=== PATIENT | female | born 1990 | race Caucasian/White ===

== ENCOUNTER 2017-01-21 12:43 | Emergency (ER) | payer BC, OTHER ==
[~2017-01-21] VITALS: Ht 154.9 cm; Wt 59.2 kg
[~2017-01-21 12:43] MED LIST: HYDR20TA22 PO; LEVO25TA2 PO; PRAS1TAB3 PO
[2017-01-21] MEDS ORDERED: SODIUM CHLORIDE 0.9% 1,000ML IVBOLUS ONE (13:30)
[2017-01-21] MEDS ORDERED: ONDANSETRON 2MG/ML, 2ML ONE (13:43)
[2017-01-21] MEDS ORDERED: HYDROCORTISONE 100 MG INJ. IVPush ONE (14:00)
[2017-01-21] MEDS ORDERED: ONDANSETRON 2MG/ML, 2ML IVPush ONE (14:00)
[2017-01-21 14:28] LABS: ASPARTATE AMINO TRANSFERASE 12 U/L (15-37); BLOOD UREA NITROGEN 10 mg/dL (7-18)
[2017-01-21] MEDS ORDERED: IBUPROFEN 200 MG TABLET ONE (15:47)
[2017-01-21] MEDS ORDERED: IBUPROFEN 200 MG TABLET PO ONE (16:00)
[2017-01-21 17:00] VITALS: BP 94/62
== END 2017-01-21 17:14 | disposition home or self-care (01) ==
LOC: ED 15:55
DX: R11.2 Nausea with vomiting, unspecified (principal); E86.0 Dehydration; E27.2 Addisonian crisis; E03.9 Hypothyroidism, unspecified
CPT/HCPCS: 36415; 80053; 83690; 84703; 85025; 96361; 96374; 96375; 99284; J1720; J2405; J7030

== ENCOUNTER → 2017-07-31 | Outpatient (CLI) | payer OTHER ==
[~2017-07-31] MED LIST changes: +GADOBUTROL 10 MMOL/10 ML VIAL ONE
== END | disposition home or self-care (01) ==
LOC: CFH 08:00
PROVIDERS: ATTEND Internal Medicine Endocrinology, Diabetes & Metabolism
DX: E23.7 Disorder of pituitary gland, unspecified (principal)
CPT/HCPCS: 70553; A9585

== ENCOUNTER 2017-09-14 10:54 | Emergency (ER) | payer OTHER ==
[~2017-09-14] VITALS: Ht 154.9 cm; Wt 62.1 kg
[~2017-09-14 10:54] MED LIST changes: -GADOBUTROL 10 MMOL/10 ML VIAL ONE
[2017-09-14] MEDS ORDERED: THYR30TA PO (11:53)
[2017-09-14] MEDS ORDERED: HYDR5TAB2 PO (11:53)
[2017-09-14] MEDS ORDERED: ONDA4TAB7 PO (11:53)
[2017-09-14] MEDS ORDERED: FLUD0.1T PO (11:53)
[2017-09-14] MEDS ORDERED: LEVO25TA2 PO (11:53)
[2017-09-14] MEDS ORDERED: ONDANSETRON 2MG/ML, 2ML ONE (12:18)
[2017-09-14] MEDS ORDERED: KETOROLAC 30 MG/1 ML ONE (12:18)
[2017-09-14 12:19] LABS: BASOPHILS # (AUTO) 0.03 x10^3/uL (0-0.1); BASOPHILS % (AUTO) 0 % (0-1); EOSINOPHILS # (AUTO) 0.05 x10^3/uL (0-0.4); EOSINOPHILS % (AUTO) 1 % (1-7); LYMPHOCYTES # (AUTO) 0.99 x10^3/uL (1-3.4); LYMPHOCYTES % (AUTO) 12 % (22-44); MD NO; MEAN CORPUSCULAR HEMOGLOBIN 30.7 pg (27.0-34.8); MEAN CORPUSCULAR HGB CONC 34.6 g/dL (32.4-35.8); MEAN CORPUSCULAR VOLUME 88.6 fL (80-100); MEAN PLATELET VOLUME 7.8 fL (7.4-10.4); MONOCYTES # (AUTO) 1.27 x10^3/uL (0.2-0.8); MONOCYTES % (AUTO) 15 % (2-9); NEUTROPHILS # (AUTO) 6.28 x10^3/uL (1.8-6.8); NEUTROPHILS % (AUTO) 73 % (42-75); PLATELET COUNT 292 x10^3/uL (130-400); RED BLOOD COUNT 5.44 x10^6/uL (3.82-5.3)
[2017-09-14 12:30] LABS: ALBUMIN 3.7 g/dL (3.4-5.0); ANION GAP 8 mmol/L (5-15); CALCIUM 8.9 mg/dL (8.5-10.1); CHLORIDE 102 mmol/L (98-107); CREATININE 0.85 mg/dL (0.55-1.02)
[2017-09-14] MEDS ORDERED: SODIUM CHLORIDE FLUSH 10ML SYR IVF ONE (12:30)
[2017-09-14] MEDS ORDERED: SODIUM CHLORIDE 0.9% 1,000ML IVBOLUS ONE ×2 (12:30→14:00)
[2017-09-14] MEDS ORDERED: KETOROLAC 30 MG/1 ML IVPush ONE (12:30)
[2017-09-14] MEDS ORDERED: ONDANSETRON 2MG/ML, 2ML IVPush ONE (12:30)
[2017-09-14 12:36] LABS: HCG UR SG 1.008 (1.003-1.030); MICROSCOPIC NOT IND
[2017-09-14 12:38] LABS: CULTURE INDICATED? NO
[2017-09-14 12:41] LABS: RAPID INFLUENZA A Negative (Negative); RAPID INFLUENZA B Negative (Negative)
[2017-09-14] MEDS ORDERED: DEXAMETHASONE 4 MG/ML, 1ML IVPush ONE (13:30)
[2017-09-14] MEDS ORDERED: DEXAMETHASONE 4 MG/ML, 5ML ONE (13:31)
[2017-09-14 14:46] VITALS: BP 109/73
== END 2017-09-14 15:19 | disposition home or self-care (01) ==
LOC: ED 13:42
DX: E27.1 Primary adrenocortical insufficiency (principal); R11.2 Nausea with vomiting, unspecified; E03.9 Hypothyroidism, unspecified; E23.0 Hypopituitarism
CPT/HCPCS: 36415; 80048; 81003; 81025; 82024; 82040; 82533; 82962; 85025; 87400; 96361; 96374; 96375; 99284; J1100; J1885; J2405; J7030

== ENCOUNTER 2019-10-28 09:04 | Emergency (ER) | payer BC, OTHER ==
[~2019-10-28] VITALS: Ht 154.9 cm; Wt 61.8 kg
[~2019-10-28 09:04] MED LIST changes: +FLUD0.1T PO; -HYDR20TA22 PO; +HYDR20TA23 PO; +HYDR5TAB7 PO; +ONDA4TAB7 PO; +THYR30TA PO
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
[2019-10-28] MEDS ORDERED: SODIUM CHLORIDE FLUSH 10ML SYR IVF ONE (09:30)
[2019-10-28] MEDS ORDERED: SODIUM CHLORIDE 0.9% 1,000 ML IV ONE (09:42)
[2019-10-28] MEDS ORDERED: SODIUM CHLORIDE 0.9% 1,000ML IVBOLUS ONE (10:00)
[2019-10-28 10:03] LABS: BASOPHILS # (AUTO) 0.03 x10^3/uL (0-0.1); BASOPHILS % (AUTO) 1 % (0-1); EOSINOPHILS # (AUTO) 0.02 x10^3/uL (0-0.4); EOSINOPHILS % (AUTO) 0 % (1-7); LYMPHOCYTES # (AUTO) 2.55 x10^3/uL (1-3.4); LYMPHOCYTES % (AUTO) 43 % (22-44); MD NO; MEAN CORPUSCULAR HEMOGLOBIN 31.3 pg (27.0-34.8); MEAN CORPUSCULAR VOLUME 92.1 fL (80-100); MEAN PLATELET VOLUME 7.4 fL (7.4-10.4); MONOCYTES # (AUTO) 0.41 x10^3/uL (0.2-0.8); MONOCYTES % (AUTO) 7 % (2-9); NEUTROPHILS # (AUTO) 2.86 x10^3/uL (1.8-6.8); NEUTROPHILS % (AUTO) 49 % (42-75); PLATELET COUNT 366 x10^3/uL (130-400); RED BLOOD COUNT 4.76 x10^6/uL (3.82-5.3); RED CELL DISTRIBUTION WIDTH 12.6 % (9.6-15.2)
[2019-10-28 10:13] LABS: ALBUMIN 3.7 g/dL (3.4-5.0); ANION GAP 8 mmol/L (5-15); CHLORIDE 107 mmol/L (98-107); CREATININE 0.86 mg/dL (0.55-1.02)
--- NOTE | 2019-10-28 10:31 | NUR ---
pt to CT, pt a&o, resps even and unlabored, nadn at transport.
[2019-10-28] MEDS ORDERED: OMNIPAQUE 350 MG/ML, 100ML BOTTLE ONE (10:54)
--- NOTE | 2019-10-28 11:01 | NUR ---
report given to keven Underwood
[2019-10-28 11:02] VITALS: BP 127/47
--- NOTE | 2019-10-28 11:02 | NUR ---
BREAK RN: PT UPRIGHT ON [facility] AWAKE, CALM & COMFORTABLE, RESPONDS APPROP TO STAFF, WATCHING TV WITH NO RESP DRISTRESS NOTED, NO NEEDS AT THIS TIME, CALL LIGHT WITHIN REACH.
--- NOTE | 2019-10-28 11:37 | NUR ---
Patient given discharge instructions and they have confirmed that they understand the instructions. Patient ambulatory with steady gait.
== END 2019-10-28 11:39 | disposition home or self-care (01) ==
LOC: ED 09:57
DX: S10.93XA Contusion of unspecified part of neck, initial encounter (principal); E23.0 Hypopituitarism; E03.9 Hypothyroidism, unspecified; Z90.49 Acquired absence of other specified parts of digestive tract; Y04.8XXA Assault by other bodily force, initial encounter; Y93.89 Activity, other specified; Y92.098 Other place in other non-institutional residence as the place of occurrence of the external cause; Y99.8 Other external cause status
CPT/HCPCS: 36415; 70491; 80048; 82040; 85025; 99285; J7030; Q9967

== ENCOUNTER 2020-10-04 15:57 | Emergency (ER) | payer BC, OTHER ==
[~2020-10-04] VITALS: Ht 154.9 cm; Wt 63.6 kg
[~2020-10-04 15:57] MED LIST changes: +HYDR20TA2 PO; -HYDR20TA23 PO; +HYDR5TAB13 PO; -HYDR5TAB7 PO
--- NOTE | 2020-10-04 16:09 | NUR ---
ERMD AT BEDSIDE FOR EVALUATION.
--- NOTE | 2020-10-04 16:13 | NUR ---
pt BIB [facility] from home for S/O lethargy, N/V/D and hot flashes x1 day. 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
--- NOTE | 2020-10-04 16:22 | NUR ---
Dr. Moore has been to bedside for eval. pt to have a meal. report to Gómez LOYA
[2020-10-04] MEDS ORDERED: HYDROCORTISONE 100 MG INJ. ONE (16:23)
[2020-10-04] MEDS ORDERED: SODIUM CHLORIDE FLUSH 10ML SYR IVF ONE (16:30)
[2020-10-04] MEDS ORDERED: D5%-0.9% NACL 1,000 ML IV SCH (16:30)
[2020-10-04] MEDS ORDERED: HYDROCORTISONE 250 MG/2 ML IVPush ONE (16:30)
--- NOTE | 2020-10-04 16:46 | NUR ---
FIRST CONTACT WITH PATIENT, SOLU-CORTEF GIVEN AND D5 WITH 0.9% NS STARTED. FOOD TRAY PROVIDED. MC KAY MACHINE OPERATOR AT BEDSIDE.
[2020-10-04 17:08] LABS: BASOPHILS % (AUTO) 0 % (0-1); EOSINOPHILS % (AUTO) 0 % (1-7); LYMPHOCYTES % (AUTO) 8 % (22-44); MEAN CORPUSCULAR HGB CONC 34.7 g/dL (32.4-35.8); MEAN PLATELET VOLUME 7.3 fL (7.4-10.4); MONOCYTES % (AUTO) 1 % (2-9); NEUTROPHILS % (AUTO) 91 % (42-75); PLATELET COUNT 397 x10^3/uL (130-400); RED BLOOD COUNT 4.66 x10^6/uL (3.82-5.3); RED CELL DISTRIBUTION WIDTH 11.9 % (9.6-15.2)
[2020-10-04 17:20] LABS: ALBUMIN 4.1 g/dL (3.4-5.0); ANION GAP 11 mmol/L (5-15); CALCIUM 8.5 mg/dL (8.5-10.1); CHLORIDE 103 mmol/L (98-107); CREATININE 0.65 mg/dL (0.55-1.02)
[2020-10-04 17:29] LABS: FREE T4 (FREE THYROXINE) 1.04 ng/dL (0.76-1.46)
[2020-10-04 17:31] LABS: MD SCAN
--- NOTE | 2020-10-04 17:56 | NUR ---
PATIENT RESTING IN GURNEY WITH EYES CLOSED, RESP EVEN AND UNLABORED, MOM AT BEDSIDE, NADN, VSS, CALL LIGHT WITHIN REACH.
--- NOTE | 2020-10-04 18:56 | NUR ---
PATIENT RESTING IN [facility] VSS, MOM AT BEDSIDE, WAITING FOR FLUIDS TO FINISH, CALL LIGHT WITHIN REACH, NO FURTHER NEEDS AT THIS TIME.
[2020-10-04 20:31] VITALS: BP 91/61
--- NOTE | 2020-10-04 20:35 | NUR ---
Patient given discharge instructions and they have confirmed that they understand the instructions. Patient stable and ambulatory with steady gait from ED with mom to private vehicle.
== END 2020-10-04 20:36 | disposition home or self-care (01) ==
LOC: ED 18:02
DX: E27.1 Primary adrenocortical insufficiency (principal); E03.9 Hypothyroidism, unspecified; R94.31 Abnormal electrocardiogram [ECG] [EKG]; Z90.49 Acquired absence of other specified parts of digestive tract; Z88.5 Allergy status to narcotic agent; Z91.040 Latex allergy status
CPT/HCPCS: 36415; 80048; 82040; 82962; 84439; 84443; 85025; 93005; 96361; 96374; 99284; J1720; J7042